=== PATIENT | female | born 2000 | race Hispanic/Latino ===

== ENCOUNTER 2023-01-13 15:20 | Outpatient (CLI) | payer OTHER | END 2023-01-13 15:21 | disposition home or self-care (01) | LOC: BICULT 15:20 | PROVIDERS: ATTEND Family Medicine | DX: Z34.82 Encounter for supervision of other normal pregnancy, second trimester (principal); Z3A.20 20 weeks gestation of pregnancy | CPT/HCPCS: 76805 ==

== ENCOUNTER 2024-09-01 08:52 | Day surgery (SDC) | payer OTHER ==
[2024-09-01] MEDS ORDERED: Acetaminophen 500 MG TAB ONE (09:07)
[2024-09-01] MEDS: Acetaminophen 500 MG TAB PO SCH (09:08)
[2024-09-01] MEDS: Iron Sucrose Complex 500 MG in Sodium Chloride 0.9% 250 ML 250 ML IVPB SCH (09:42)
[2024-09-01 14:49] VITALS: BP 104/54; TEMP 98.7
== END 2024-09-01 14:49 | disposition home or self-care (01) ==
LOC: ONC/OP 08:52
PROVIDERS: ATTEND Family Medicine
DX: O24.419 Gestational diabetes mellitus in pregnancy, unspecified control (principal); O99.012 Anemia complicating pregnancy, second trimester; Z3A.25 25 weeks gestation of pregnancy; Z79.82 Long term (current) use of aspirin; Z79.899 Other long term (current) drug therapy; Z91.040 Latex allergy status; Z91.018 Allergy to other foods
CPT/HCPCS: 96365; 96366; J1756; J7050